=== PATIENT | female | born 1970 | race Caucasian/White ===

== ENCOUNTER 2017-11-03 20:14 | Emergency (ER) | payer MEDICAID ==
[~2017-11-03] VITALS: Ht 160 cm; Wt 54.4 kg
--- NOTE | ~2017-11-03 | EKG ---
[facility] [place] [place] [address] [place] [address] ELECTROCARDIOGRAM REPORT Name: JUAN C MORTENSEN I [id number] Admission: 11/03/17 Attend Phys: Discharge: Date of : 68 Report #: [id number] THIS REPORT FOR: //name// [facility] [place] [place] ED Test Date: 2017-11-03 Test Time: 22:05:24 Pat Name: JUAN C MORTENSEN Department: Room: Gender: F Histology Assistant: JESSY : 1970 Requested By: Myke Fisher Order Number: [id number] MD: Measurements Intervals [place] Rate: 64 P: 65 [place]: 143 QRS: 80 QRSD: 98 T: 48 QT: 403 QTc: 416 Interpretive Statements Sinus rhythm Left atrial enlargement No previous ECG available for comparison [email or web address] By: 04 04 Justa Marr MD /EPI
[2017-11-03 22:00] LABS: URINE BILIRUBIN NEGATIVE (Negative); URINE BLOOD NEGATIVE (Negative); URINE CLARITY CLEAR; URINE COLOR YELLOW; URINE GLUCOSE-RANDOM* NEGATIVE (Negative); URINE KETONES NEGATIVE (Negative); URINE LEUKOCYTES-REFLEX TRACE (Negative); URINE NITRITE-REFLEX NEGATIVE (Negative); URINE PROTEIN (DIPSTICK) NEGATIVE (Negative); URINE UROBILINOGEN 0.2 E.U./dl (0.2-1.0)
[2017-11-03 22:08] LABS: AMP/METHAMP Negative (Negative); BARBITURATES Negative (Negative); BENZODIAZEPINES Negative (Negative); COCAINE Negative (Negative); METHADONE Negative (Negative); OPIATES Negative (Negative); PCP Negative (Negative)
[2017-11-03 22:22] LABS: ABSOLUTE NEUTROPHILS 4.3 thou/uL (1.4-8.2); BASOPHILS 0.6 % (0.0-2.0); EOSINOPHILS 1.2 % (0.0-3.0); HEMATOCRIT 37.6 % (37.0-47.0); MCH 31.6 pg (26.0-34.0); MCHC 34.6 g/dL (28.0-37.0); MCV 91.4 fL (80.0-100.0); MONOCYTES 5.8 % (1.0-8.0); PLATELET COUNT 329 thou/uL (150-400); POLYS 57.4 % (36.0-66.0); RBC 4.11 mil/uL (4.20-5.00); RDW 13.9 % (10.5-14.5); WBC 7.4 thou/uL (4.0-11.0)
[2017-11-03 22:30] LABS: ANION GAP 5 mmol/L (7-16); BUN 14 mg/dL (7-18); CALCIUM 10.1 mg/dL (8.5-10.1); CHLORIDE 100 mmol/L (98-107); CO2 30 mmol/L (21-32); CREATININE 0.8 mg/dL (0.6-1.0); GLUCOSE 91 mg/dL (74-106); POTASSIUM 3.6 mmol/L (3.5-5.1); SODIUM 135 mmol/L (136-145)
[2017-11-03 22:39] LABS: ALBUMIN 4.1 g/dL (3.4-5.0); MAGNESIUM 2.1 mg/dL (1.8-2.4); SGOT 17 U/L (15-37); SGPT 21 U/L (30-65); TOTAL BILIRUBIN 0.4 mg/dL (<0.1-1.0); TROPONIN-I <0.06 ng/mL (<0.06)
[2017-11-03] MEDS ORDERED: KEFLEX500 M1 PO (22:57)
[2017-11-04 00:43] VITALS: BP 109/89
== END 2017-11-04 00:47 | disposition home or self-care (01) ==
LOC: ER 20:14
PROVIDERS: Emergency Medicine
DX: R07.9 Chest pain, unspecified (principal); R10.11 Right upper quadrant pain; F22 Delusional disorders; F41.9 Anxiety disorder, unspecified; Z59.0 Homelessness; Z90.49 Acquired absence of other specified parts of digestive tract; Z90.710 Acquired absence of both cervix and uterus

== ENCOUNTER 2017-11-04 10:08 | Emergency (ER) | payer MEDICAID ==
[~2017-11-04] VITALS: Ht 160 cm; Wt 49.9 kg
--- NOTE | ~2017-11-04 | EKG ---
[address] [address] ELECTROCARDIOGRAM REPORT Name: JUAN C MORTENSEN I Room #: [facility] [id number] Admission: 11/04/17 Attend Phys: Discharge: 11/04/17 Date of : 68 Report #: [id number] THIS REPORT FOR: //name// [facility] ED Test Date: 2017-11-04 Test Time: 10:11:20 Pat Name: JUAN C MORTENSEN Department: Room: Gender: F Poster: : 1970 Requested By: Jolie Jenkins Order Number: [id number] MD: aFrhat Norris Measurements Intervals [place] Rate: 69 P: 62 [place]: 140 QRS: 81 QRSD: 98 T: 41 QT: 405 QTc: 434 Interpretive Statements Sinus rhythm No previous ECG available for comparison Electronically Signed On 11-05-2017 13:22:51 CDT by Farhat Norris [email or web address] <ELECTRONICALLY SIGNED> By: Farhat Norris MD 11/05/17 1322 1011 1011 MD ROCAEL Bernal
[~2017-11-04 10:08] MED LIST: KEFLEX500 M1 PO
[2017-11-04 10:39] LABS: ABSOLUTE NEUTROPHILS 4.8 thou/uL (1.4-8.2); BASOPHILS 0.5 % (0.0-2.0); EOSINOPHILS 0.9 % (0.0-3.0); HEMATOCRIT 36.9 % (37.0-47.0); HEMOGLOBIN 12.5 gm/dL (12.0-15.0); LYMPHOCYTES 25.3 % (24.0-44.0); MCHC 33.9 g/dL (28.0-37.0); MCV 91.4 fL (80.0-100.0); MONOCYTES 5.8 % (1.0-8.0); PLATELET COUNT 341 thou/uL (150-400); POLYS 67.5 % (36.0-66.0); RBC 4.04 mil/uL (4.20-5.00)
[2017-11-04 10:52] LABS: ANION GAP 4 mmol/L (7-16); BUN 16 mg/dL (7-18); CALCIUM 10.2 mg/dL (8.5-10.1); CHLORIDE 100 mmol/L (98-107); CO2 30 mmol/L (21-32); CREATININE 0.7 mg/dL (0.6-1.0); GLUCOSE 109 mg/dL (74-106); POTASSIUM 3.9 mmol/L (3.5-5.1); SODIUM 134 mmol/L (136-145)
[2017-11-04 11:01] LABS: TROPONIN-I <0.06 ng/mL (<0.06)
[2017-11-04 12:44] VITALS: BP 104/68
== END 2017-11-04 12:46 | disposition home or self-care (01) ==
LOC: ER 10:08
PROVIDERS: Student in an Organized Health Care Education/Training Program
DX: R07.9 Chest pain, unspecified (principal); F17.210 Nicotine dependence, cigarettes, uncomplicated; Z59.0 Homelessness; Z88.0 Allergy status to penicillin; Z88.1 Allergy status to other antibiotic agents; Z88.6 Allergy status to analgesic agent